=== PATIENT | female | born 1985 | race Caucasian/White ===

== ENCOUNTER → 2022-02-13 18:00 | Observation (INO) ==
[2022-02-13 16:48] LABS: Bacteria,Urine Few per hpf (None-Few); Bilirubin,Urine Negative (Negative); Blood,Urine Negative (Negative); Calcium Oxalate Crystals,Urine Present per hpf; Clarity,Urine Turbid (Clear); Color,Urine Light-Yellow (Yellow); Glucose,Urine (UA) Normal (Normal); Ketones,Urine Negative (Negative); Leukocyte Esterase,Urine Small (Negative); Mucus,Urine Moderate per lpf (None-Few); Nitrite,Urine Negative (Negative); PH,Urine 6.5 pH Units (5.0-8.0); Protein,Urine Trace mg/dL (Neg-Trace); RBC,Urine 0-3 per hpf (0-3); Specific Gravity,Urine 1.014 (1.010-1.025); Squamous Epithelial Cell,Urine Moderate per hpf (None-Few); Urobilinogen,Urine Normal (Normal); WBC,Urine 0-3 per hpf (0-3)
[~2022-02-13 18:00] MED LIST: EPHEDrine 50 MG/ML VIAL IVP PRN; Epidural Premix (fent/bupiv) 110 ML EP SCH
[2022-02-13 18:29] LABS: Candida DNA Not Detected (Not Detect); Gardnerella DNA DETECTED (Not Detect); Trichomonas DNA Not Detected (Not Detect)
== END | disposition home or self-care (01) ==
LOC: 1NENULAB
PROVIDERS: ADMIT Obstetrics & Gynecology; ATTEND Obstetrics & Gynecology

== ENCOUNTER 2022-03-01 08:22 | Inpatient (IN) ==
[2022-03-01] MEDS ORDERED: Ringers Solution, Lactated 1,000 ML ONE (08:28)
[2022-03-01] MEDS ORDERED: Bupivacaine-MPF 0.25% 10 ML VIAL ONE (08:37)
[2022-03-01] MEDS ORDERED: *HR* FentaNYL (PF) 100 MCG/2 ML VIAL ONE (08:37)
[2022-03-01] MEDS ORDERED: Epidural Premix (fent/bupiv) 110 ML EP ONE (08:37)
[2022-03-01] MEDS ORDERED: Famotidine 20 MG/2 ML VIAL IVP PRN (09:07)
[2022-03-01] MEDS ORDERED: Metoclopramide 10 MG/2 ML VIAL IVP PRN (09:07)
[2022-03-01] MEDS ORDERED: Naloxone 0.4 MG/ML INJ IVP PRN (09:07)
[2022-03-01] MEDS ORDERED: Ringers Solution, Lactated 1,000 ML IVC SCH (09:15)
[2022-03-01] MEDS ORDERED: EPHEDrine 50 MG/ML VIAL IVP PRN (09:17)
[2022-03-01 09:26] LABS: Basophils # 0.1 K/mcL (0.0-0.2); Basophils % 0.4 %; Eosinophils # 0.2 K/mcL (0.0-0.6); Eosinophils % 0.8 %; Hematocrit 35.6 % (35.3-44.9); Hemoglobin 11.8 g/dL (11.5-15.4); Immature Granulocytes % 2.1 % (0-4); Lymphocytes # 4.5 K/mcL (0.6-4.6); Lymphocytes % 21.2 %; Mean Corpuscular HGB Conc 33.1 g/dL (31.6-35.5); Mean Corpuscular Hemoglobin 30.7 pg (28.0-33.3); Mean Corpuscular Volume 92.7 fL (83.0-100.0); Mean Platelet Volume 9.4 fL (9.4-12.4); Monocytes # 1.1 K/mcL (0.0-1.3); Monocytes % 5.1 %; Neutrophils # 14.9 K/mcL (1.6-8.9); Platelet Count 372 K/mcL (140-400); Red Blood Count 3.84 M/mcL (3.82-4.97); Red Cell Distribution Width 12.8 % (11.5-14.5); Segmented Neutrophils % 70.4 %; White Blood Count 21.2 K/mcL (4.3-11.1)
[2022-03-01] MEDS ORDERED: Epidural Premix (fent/bupiv) 110 ML EP SCH (09:30)
[2022-03-01 10:21] LABS: Amphetamine Screen,Urine Negative ng/mL (Cutoff=1000); Barbiturate Screen,Urine Negative ng/mL (Cutoff=200); Benzodiazepines Screen,Urine Negative ng/mL (Cutoff=200); Cannabinoid Screen,Urine Negative ng/mL (Cutoff = 50); Cocaine Screen,Urine Negative ng/mL (Cutoff= 300); Opiate Screen,Urine Negative ng/mL (Cutoff=300); Phencyclidine Screen,Urine Negative ng/mL (Cutoff=25)
[2022-03-01] MEDS ORDERED: Measles/Mumps/Rubella Vacc 0.5 ML VIAL SQ PRN (11:23)
[2022-03-01] MEDS ORDERED: Ondansetron ODT 4 MG TAB.RAPDIS SL PRN (11:23)
[2022-03-01] MEDS ORDERED: Rho Immune Globulin 1,500 UNIT SYRINGE IM PRN (11:23)
[2022-03-01] MEDS ORDERED: Lanolin 7 G OINT...G. TP PRN (11:23)
[2022-03-01] MEDS ORDERED: Benzocaine/Menthol 56 GM AEROSOL SPRAY TP PRN (11:23)
[2022-03-01] MEDS: Ibuprofen 600 MG TABLET PO SCH ×2 (13:13→22:24)
[2022-03-01] MEDS: Acetaminophen 325 MG TABLET PO SCH ×2 (17:27→22:24)
[2022-03-02] MEDS: Ibuprofen 600 MG TABLET PO SCH (06:00)
[2022-03-02] MEDS: Acetaminophen 325 MG TABLET PO SCH (06:00)
[2022-03-02 06:08] LABS: Basophils # 0.1 K/mcL (0.0-0.2); Basophils % 0.4 %; Eosinophils # 0.2 K/mcL (0.0-0.6); Eosinophils % 1.2 %; Hematocrit 32.6 % (35.3-44.9); Hemoglobin 10.8 g/dL (11.5-15.4); Lymphocytes # 3.6 K/mcL (0.6-4.6); Lymphocytes % 20.7 %; Mean Corpuscular HGB Conc 33.1 g/dL (31.6-35.5); Mean Corpuscular Hemoglobin 30.3 pg (28.0-33.3); Mean Corpuscular Volume 91.6 fL (83.0-100.0); Mean Platelet Volume 9.2 fL (9.4-12.4); Monocytes # 0.9 K/mcL (0.0-1.3); Monocytes % 5.2 %; Neutrophils # 12.3 K/mcL (1.6-8.9); Platelet Count 345 K/mcL (140-400); Red Blood Count 3.56 M/mcL (3.82-4.97); Red Cell Distribution Width 12.5 % (11.5-14.5); Segmented Neutrophils % 71.5 %; White Blood Count 17.3 K/mcL (4.3-11.1)
[2022-03-02 08:09] VITALS: BP 96/62; PULSE 50; TEMP 98.1; O2SAT 98
[2022-03-02] MEDS ORDERED: Prenatal Vit/FA 1 EACH TABLET PO SCH (09:00)
== END 2022-03-02 11:17 | disposition home or self-care (01) | DRG 560 ==
LOC: 1NENULAB 08:22 → 1NENUOBS 12:21
PROVIDERS: ADMIT Student in an Organized Health Care Education/Training Program; ATTEND Student in an Organized Health Care Education/Training Program